=== PATIENT | male | born 1970 | race Caucasian/White ===

== ENCOUNTER → 2020-01-07 15:57 | Outpatient (REF) | payer OTHER, SELFPAY | LOC: ANHLAB 15:57 | PROVIDERS: PCP Nurse Practitioner Family; Visit Provider Nurse Practitioner | DX: D49.2 Neoplasm of unspecified behavior of bone, soft tissue, and skin (principal) | CPT/HCPCS: 88305 ==

== ENCOUNTER → 2021-09-07 13:33 | Outpatient (CLI) | payer OTHER, SELFPAY ==
--- NOTE | ~2021-09-07 | CT_ITS ---
EXAMINATION: CT abdomen wo/w con DATE: 09/07/2021 14:08 INDICATION: Abdominal pain TECHNIQUE: Computed tomography (CT) of the abdomen was performed prior to and then following the admi nistration of 100 cc of Omnipaque 350 intravenous contrast. The dose-length product (DLP) was 1021.34 mGy-cm. Automated exposure control and iterative reconstruction technique were employed. COMPARISON: None FINDINGS: Minimal dependent atelectasis is present in the lung bases. The heart size is normal. The l iver, spleen, pancreas, gallbladder, and adrenal glands are normal. The kidneys are unremarkable. The re are no pathologically enlarged abdominal lymph nodes. There is no free intraperitoneal gas or evid ence of bowel obstruction. IMPRESSION: 1. No CT correlate for the patient's symptoms. Reviewed, dictated and finalized at location [facility]
[2021-09-07 13:56] LABS: Estimated Glomerular Filt Rate > 60
== END ==
PROVIDERS: PCP Nurse Practitioner Family; Visit Provider Nurse Practitioner Family
DX: R10.9 Unspecified abdominal pain (principal)
CPT/HCPCS: 74170; Q9967

== ENCOUNTER 2021-11-08 00:28 | Day surgery (SDC) | payer OTHER, SELFPAY ==
[2021-10-28 14:56] VITALS: BMI 26.9
[2021-11-08 12:51] VITALS: BP 127/93; PULSE 71; RESP 20; TEMP 36.6; O2SAT 100
[2021-11-08 12:51] LABS: Glucose Point of Care 138 mg/dl (65-105)
[2021-11-08] MEDS: LACTATED RINGERS 1,000 ML 150 ML IV CONT (12:53)
--- NOTE | 2021-11-08 13:11 | WPDANESEPPF ---
Anes - Initial Pre Proc Eval Procedure: Operation Date: 11/08/21 14:00 Proposed Procedures p Esophagogastroduodenoscopy & Colonoscopy - Shakir Fritz MD Date/Time: 11/08/21 13:11 Surgeon: Shakir Fritz MD Pre Op Diagnosis: abdom. pain, weight loss, dysphagia Patient Data Age: 51 Gender: M Height: 1.8 m Weight: 85.8 kg Last Vital Signs Temp 36.6 C 11/08/21 12:51 Pulse 71 11/08/21 12:51 Resp 20 11/08/21 12:51 BP 127/93 H 11/08/21 12:51 Pulse Ox 100 11/08/21 12:51 Allergies Allergy/AdvReac Type Severity Reaction Status Date / Time No Known Allergies Allergy Unknown Verified 11/08/21 12:50 Home Medications Medication Instructions Recorded Confirmed Type canagliflozin 100 mg tablet 100 mg PO DAILY tablet 01/07/20 11/08/21 History metformin 500 mg tablet 500 mg PO BID tablet 01/07/20 11/08/21 History metoprolol succinate 50 mg 50 tablet PO DAILY 01/07/20 11/08/21 History tablet,extended release 24 hr lisinopril 5 mg tablet 5 mg PO DAILY 10/04/21 11/08/21 History dapagliflozin [Farxiga] 10 mg PO DAILY 10/28/21 11/08/21 History Laboratory Tests 11/08/21 12:48 POC Capillary Glucose 138 mg/dl H mg/dl (65-105) Patient hx anesthesia problems: none Family hx anesthesia problems: none Results Review: All pre-operative results and documents have been reviewed as part of the pre-operative evaluation. [facility]LY [facility] Past Medical History Medical History (Updated 11/08/21 @ 13:11 by Justen Ochoa MD) Hyperlipidemia Surgical History Surgical History History of prostate surgery 05/2019 Family History Family History Father Heart disease Mother Lichen planus Social History Social History Smoking status: Never smoker Smokeless tobacco user: chewing tobacco Alcohol intake: current Drinks per week: 1 Alcohol use details: social Substance use: current Living arrangements: with family Spiritual care concerns: No Anes - Eval Final PreProcedure Day of Procedure 11/08/21 13:11 Patient weight: overweight Heart: regular rate and rhythm Lungs: clear to auscultation Airway: Mallampati scale class II Neurological: alert and oriented Last oral intake: >/= 8 hours ASA classification: III Emergent: no Anesthetic plan: proceed Anesthesia type and monitoring: general GIVS and standard monitoring Results Review: All pre-operative results and documents have been reviewed as part of the pre-operative evaluation. Informed Consent: The patient's anesthetic plan and its attendant risks and benefits were discussed with the patient/family/POA. Questions were solicited and answers provided to the satisfaction of the patient/family/POA.
--- NOTE | 2021-11-08 13:13 | PM.HPGS ---
History of Present Illness History of Present Illness Consent: Risks, benefits, and alternatives have been discussed and questions answered. Patient agrees to proceed with procedure. Chief complaint: abdom. pain, weight loss, dysphagia Narrative: Joni Alexis is a 51 year old male with dysphagia to solids, dilated about 10-11 years ago. Never had colonoscopy. Review of Systems Constitutional: Constitutional: Denies headache(s) and Denies weakness Eyes: Eyes: Denies blurry vision ENT: Reports Normal hearing present, Denies headache(s) and Denies neck pain Cardiovascular: Cardiovascular: Denies chest pain and Denies dyspnea Respiratory: Respiratory: Denies dyspnea Gastrointestinal: Gastrointestinal: Reports no additional gastrointestinal complaints Genitourinary: Genitourinary: Denies dysuria Musculoskeletal: Musculoskeletal: Denies neck pain Integumentary/Breasts: Skin/Breast: Denies dry skin Neurologic: Reports Normal hearing present, Denies headache(s) and Denies weakness Psychiatric: Psychiatric: Denies anxiety Endocrine: Endocrine: Denies change in body appearance Hematologic/Lymphatic: Hematologic/Lymphatic: Denies easy bleeding Allergic/Immunologic: Allergic/Immunologic: Denies urticaria PMF Past Medical History Medical History (Updated 11/08/21 @ 13:14 by Shakir Fritz MD) Colon cancer screening Dysphagia Hyperlipidemia Surgical History Surgical History History of prostate surgery 05/2019 Family History Family History Father Heart disease Mother Lichen planus Social History Social History Smoking status: Never smoker Smokeless tobacco user: chewing tobacco Alcohol intake: current Drinks per week: 1 Alcohol use details: social Substance use: current Living arrangements: with family Spiritual care concerns: No Meds Home Medications and Allergies Home Medications Medication Instructions Recorded Confirmed Type canagliflozin 100 mg tablet 100 mg PO DAILY tablet 01/07/20 11/08/21 History metformin 500 mg tablet 500 mg PO BID tablet 01/07/20 11/08/21 History metoprolol succinate 50 mg 50 tablet PO DAILY 01/07/20 11/08/21 History tablet,extended release 24 hr lisinopril 5 mg tablet 5 mg PO DAILY 10/04/21 11/08/21 History dapagliflozin [Farxiga] 10 mg PO DAILY 10/28/21 11/08/21 History Allergies Allergy/AdvReac Type Severity Reaction Status Date / Time No Known Allergies Allergy Unknown Verified 11/08/21 12:50 Vital Signs Vital Signs - 24 hr 11/08/21 12:51 Temperature 98 F Pulse Rate 71 Respiratory Rate 20 Blood Pressure 127/93 H Pulse Oximetry 100 Exam Const: General: comfortable and no acute distress HENMT: General nose exam: Normal nares present Eyes: General: appearance normal, both eyes and all related structures Neck: Neck: no JVD Resp: Auscultation: clear to auscultation bilaterally Cardio: Rate: regular rate Rhythm: regular rhythm GI: Inspection: non-distended GI Palp: Yes Soft to palpation Skin: General skin exam: normal color Neuro: General: gait normal Speech: normal speech Extrem: General: normal to inspection Psych: Mental Status: mental status grossly normal Assessment and Plan Assessment and plan (1) Dysphagia: Code(s): R13.10 - Dysphagia, unspecified Status: Acute Assessment and Plan: egd, will assess if needs dilation, consider biopsies (2) Colon cancer screening: Code(s): Z12.11 - Encounter for screening for malignant neoplasm of colon Status: Acute Assessment and Plan: colonoscopy
[2021-11-08 13:52] VITALS: BP 123/84; PULSE 70; RESP 20; O2SAT 99
[2021-11-08 14:02] VITALS: BP 130/90; PULSE 72; RESP 18; O2SAT 100
[2021-11-08 14:12] VITALS: BP 136/85; PULSE 66; RESP 20; O2SAT 100
== END 2021-11-08 14:20 | disposition home or self-care (01) ==
PROVIDERS: PCP Nurse Practitioner Family; Visit Provider Internal Medicine Gastroenterology
PROC: 0DJ08ZZ Inspection of Upper Intestinal Tract, Via Natural or Artificial Opening Endoscopic (ICD-10-PCS; CPT 43235; principal; 2021-11-08 14:00)
DX: Z12.11 Encounter for screening for malignant neoplasm of colon (principal); K64.8 Other hemorrhoids; K20.80 Other esophagitis without bleeding; K29.60 Other gastritis without bleeding; D12.3 Benign neoplasm of transverse colon; R13.19 Other dysphagia; K22.2 Esophageal obstruction; K44.9 Diaphragmatic hernia without obstruction or gangrene; R10.9 Unspecified abdominal pain; R63.4 Abnormal weight loss; E78.5 Hyperlipidemia, unspecified; F17.229 Nicotine dependence, chewing tobacco, with unspecified nicotine-induced disorders; Z79.84 Long term (current) use of oral hypoglycemic drugs
CPT/HCPCS: 45385; 43239; 43249; 82948; 88305; C1726; J2704; J7120

== ENCOUNTER 2023-03-14 09:00 | Outpatient (NON) | payer OTHER, SELFPAY | END 2023-03-14 09:01 | disposition home or self-care (01) | LOC: ANHLAB 03-15 13:33 | PROVIDERS: PCP Nurse Practitioner Family; Visit Provider Nurse Practitioner | DX: C44.319 Basal cell carcinoma of skin of other parts of face (principal) | CPT/HCPCS: 88305 ==

== ENCOUNTER 2023-03-27 14:58 | Outpatient (NON) | payer OTHER, SELFPAY | END 2023-03-27 14:59 | disposition home or self-care (01) | LOC: ANHLAB 14:58 | PROVIDERS: PCP Nurse Practitioner Family; Visit Provider Surgery Plastic and Reconstructive Surgery | DX: C44.319 Basal cell carcinoma of skin of other parts of face (principal) | CPT/HCPCS: 88305; 88331 ==